=== PATIENT | male | born 1995 | race African-American/Black ===

== ENCOUNTER 2016-04-19 16:32 | Emergency (ER) | payer OTHER ==
[~2016-04-19] VITALS: Ht 185.4 cm; Wt 68.0 kg
[2016-04-19 16:32] VITALS: BP 125/66
[~2016-04-19 16:32] MED LIST: IBUPROFEN 600600 M1 PO; NORCO 5-325 TA1 EACH PO
[2016-04-19] MEDS ORDERED: NAPROSYN500 MG PO (17:08)
[2016-04-19] MEDS ORDERED: FLONASE 0.05%50 MCG NASAL (17:08)
[2016-04-19] MEDS ORDERED: NORFLEX100 MG PO (17:08)
== END 2016-04-19 17:16 | disposition home or self-care (01) ==
LOC: ER 16:32
DX: G44.209 Tension-type headache, unspecified, not intractable (principal); J06.9 Acute upper respiratory infection, unspecified; J34.89 Other specified disorders of nose and nasal sinuses; F10.99 Alcohol use, unspecified with unspecified alcohol-induced disorder; F12.10 Cannabis abuse, uncomplicated